=== PATIENT | female | born 1985 | race Caucasian/White ===

== ENCOUNTER → 2019-11-04 | Outpatient (CLI) | payer BC ==
--- NOTE | 2019-11-04 12:23 | US ---
EXAMINATION TYPE: US abdomen complete DATE OF EXAM: 11/04/2019 COMPARISON: US CLINICAL HISTORY: R10.84 ABD PAIN. Prior renal stones EXAM MEASUREMENTS: Liver Length: 11.2 cm Gallbladder Wall: 0.2 cm CBD: 0.2 cm Spleen: 9.9 cm Right Kidney: 10.0 x 6.3 x 5.1 cm Left Kidney: 10.9 x 6.0 x 4.5 cm Pancreas: wnl Liver: mildly heterogeneous left lobe Gallbladder: wnl Evidence for sonographic Jackson's sign: no CBD: wnl Spleen: wnl Right Kidney: renal calcification noted inferior lateral pole = 0.4 x 0.3 x 0.2cm Left Kidney: No hydronephrosis or masses seen Upper IVC: wnl Abd Aorta: wnl IMPRESSION: 1. Nonobstructing inferior pole right renal stone.
--- NOTE | 2019-11-04 16:49 | US ---
EXAMINATION TYPE: US pelvis complete transvag DATE OF EXAM: 11/04/2019 COMPARISON: NONE CLINICAL HISTORY: N92.0 PAIN/BLEEDING; heavy menstrual cycles and is on menses currently TECHNIQUE: Transabdominal (TA). Transabdominal sonographic images of the pelvis were acquired. Tra nsvaginal sonographic images were medically necessary to better assess the following anatomy: endomet rium Date of LMP: 10/27/2019 EXAM MEASUREMENTS: Uterus: 8.4 x 5.2 x 4.3 cm Endometrial Stripe: 0.7 cm Right Ovary: 2.3 x 2.6 x 2.3 cm Left Ovary: 2.8 cm 1. Uterus: Anteverted; hyperechoic area of interrupted lines noted in [place] (possible scar tissue) = 0 .8 x 0.9 x 0.6cm; myometrium appears wnl. 2. Endometrium: hyperechoic central tissue area noted upper endometrium and may be blood products fr om current menstrual cycle. 3. Right Ovary: multiple small follicles seen 4. Left Ovary: multiple small follicles seen with largest = 1.4 x 1.0 x 0.8cm 5. Bilateral Adnexa: wnl 6. Posterior cul-de-sac: wnl IMPRESSION: 1. Left ovarian cyst. 2. Lower uterine segment echogenic band through the endometrial canal could be some scarring. MRI cou ld be performed if closer evaluation would be of benefit.
== END | disposition home or self-care (01) ==
LOC: RADUSWWP 07:40
PROVIDERS: ATTEND Family Medicine
DX: N20.0 Calculus of kidney (principal); N83.202 Unspecified ovarian cyst, left side; N92.0 Excessive and frequent menstruation with regular cycle
CPT/HCPCS: 76700; 76830; 76856